=== PATIENT | male | born 2000 | race Caucasian/White ===

== ENCOUNTER 2020-01-21 09:40 | Emergency (ER) | payer OTHER ==
[~2020-01-21] VITALS: Ht 170.2 cm; Wt 72.0 kg
--- NOTE | 2020-01-21 10:09 | NUR ---
SAME TRIAGE NOTE. PT REPORTS PAIN 6/10 TO R RIB CAGE, STATES, "MAYBE I PULLED A MUSCLE OR SOMETHING". ABLE TO MOVE AROUND WITHOUT DIFFICULTY.
[2020-01-21] MEDS ORDERED: IBUPROFEN 600 MG TABLET ONE (10:58)
[2020-01-21] MEDS ORDERED: IBUPROFEN 200 MG TABLET PO ONE (11:00)
--- NOTE | 2020-01-21 11:43 | NUR ---
ZAYNAB KAUR AT FOR RECHECK.
[2020-01-21 11:57] VITALS: BP 119/72
--- NOTE | 2020-01-21 12:00 | NUR ---
D/C INSTRUCTIONS, MEDS & F/U APPT RV'WD WITH PT, HE VERBALIZES UNDERSTANDING. RX GIVEN X1. PT AMBULATED OUT OF ED WITHOUT DIFFICULTY.
== END 2020-01-21 12:06 | disposition home or self-care (01) ==
LOC: ED 10:42
DX: S20.211A Contusion of right front wall of thorax, initial encounter (principal); G89.11 Acute pain due to trauma; R07.81 Pleurodynia; X58.XXXA Exposure to other specified factors, initial encounter; Y93.9 Activity, unspecified; Y92.89 Other specified places as the place of occurrence of the external cause; Y99.0 Civilian activity done for income or pay
CPT/HCPCS: 99283